=== PATIENT | male | born 1945 | race Caucasian/White ===

== ENCOUNTER 2017-03-07 10:51 | Inpatient (IN) ==
--- NOTE | 2017-03-07 11:04 | Emergency Department Note ---
Disposition Clinical Impression: Paroxysmal atrial fibrillation Disposition: Admitted As Inpatient Condition: Fair Referrals: Ab Royal, [employer] SUPERINTENDENT [Primary Care Provider] - Forms: ED Satisfaction Letter Time of Disposition: 12:39 Arrhythmia/Palpitations HPI - General Chief Complaint: ED Arrhythmia/Palpitations Stated Complaint: abnormal ekg Time Seen by Provider: 03/07/17 10:55 Source: patient, family Limitations: no limitations Nursing Notes Reviewed: Yes Vital Signs Reviewed: Yes - History of Present Illness HPI Narrative: 71-year-old who says she's had felt well in the last several days and comes in from the primary care provider's office apparently he is in A. fib. Patient had an episode of A. fib back in 2010 was electrically converted back to sinus is been in sinus since. She was on Coumadin at that time his no longer on Coumadin. Denies any chest pain. Pt Subjective Complaint: palpitations Onset (ago): day(s) Duration: constant (Several) Severity: moderate Arrhythmia History: atrial fibrillation (N past has not been in atrial fibrillation for several years.) - Related Data Home Medications Medication Instructions Recorded Confirmed Aspirin Enteric Coated [Aspirin EC] 81 mg PO DAILY 04/29/16 04/30/16 Atorvastatin Calcium [Lipitor] 10 mg PO SUWEFR 04/29/16 04/30/16 Hydrochlorothiazide 12.5 mg PO DAILY 04/29/16 04/30/16 Nicotine Polacrilex [Nicorette] 2 mg BC QID PRN 04/29/16 04/30/16 Ergocalciferol (VITAMIN D2) 400 unit PO DAILY 04/30/16 04/30/16 [Vitamin D] Multivitamin [Multivitamins] 1 tab PO DAILY 04/30/16 04/30/16 Alexander-3/Dha/Epa/Fish Oil [Fish Oil 500 mg PO DAILY 04/30/16 04/30/16 Dr 500 mg Softgel] Psyllium [Metamucil Fiber Singles 1 packet PO DAILY PRN 04/30/16 04/30/16 Packet] Previous Rx's Medication Instructions Recorded Lisinopril [Zestril] 5 mg PO DAILY #30 tablet 05/01/16 Allergies Allergy/AdvReac Type Severity Reaction Status Date / Time No Known Allergies Allergy Verified 03/07/17 11:00 All systems ED: reviewed and negative except as stated. Constitutional: Denies: fever, chills, weakness, weight change Eyes: Denies: eye pain, eye discharge, vision change ENT ED: Denies: ear pain, throat pain, dental pain, hearing loss, epistaxis, congestion, dysphagia Cardiovascular: Reports: palpitations. Denies: chest pain, dyspnea on exertion , edema, syncope Respiratory: Denies: cough, dyspnea, wheezes, hemoptysis, stridor Gastrointestinal: Denies: abdominal pain, nausea, vomiting, diarrhea, constipation, hematemesis, melena, hematochezia Genitourinary: Denies: urgency, dysuria, frequency, hematuria Musculoskeletal: Denies: back pain, neck pain, arthralgia, myalgia Integumentary: Denies: rash, abrasion, lesions Neurological: Denies: headache, weakness, numbness, paresthesias, confusion, abnormal gait, vertigo Psychiatric: Denies: anxiety, depression, suicidal thoughts, homicidal thoughts , auditory hallucinations, visual hallucinations Endocrine: Denies: fatigue Hematological/Lymphatic: Denies: easy bleeding, easy bruising Allergic/Immunologic: Denies: facial swelling, urticaria Past Medical History - Past Medical History Medical history: Reports: atrial fibrillation, CHF, coronary artery disease, hyperlipidemia, hypertension, myocardial infarction, other Surgical history: Reports: coronary bypass (CABG), other (tonsilletomy) Psychiatric history: Reports: no psych history - Social History Smoking Status: Former smoker Smokeless Tobacco Status: Yes Alcohol use: Reports: rarely Drug use: Reports: none Physical Exam - General Limitations: no limitations General appearance: alert, in no apparent distress - Head Head exam: atraumatic, normocephalic, normal inspection - Eye Eye exam: Present: normal appearance, PERRL, EOMI - ENT ENT exam: normal exam, normal oropharynx, mucous membranes moist - Neck Neck exam: Present: normal inspection, full ROM, trachea midline - Chest Chest inspection: Present: normal inspection, symmetric chest wall rise - Respiratory Respiratory exam: Present: normal lung sounds bilaterally - Cardiovascular Cardiovascular exam: Present: regular rate, irregular rhythm - Abdominal Exam Abdominal exam: Present: soft, Non-Tender. Absent: tenderness, distention, guarding, rebound, rigidity - Extremities Exam Extremities exam: Present: normal inspection, full ROM. Absent: tenderness, pedal edema - Expanded Lower Extremity Exam Neurovascular/Tendon exam: Absent: motor deficit, sensory deficit, tendon deficit Gait: observed and normal - Back Exam Back exam: Present: normal inspection, full ROM. Absent: tenderness - Neurological Exam Neurological exam: Present: alert, oriented X3 - Psychiatric Psychiatric exam: Present: normal affect, normal mood - Skin Skin exam: Present: warm, dry, intact, normal color Course - Reevaluation(s) Reevaluation #1: The [id number] who comes in stating he's felt bad for about a week when trying to quantify what he means by feeling that he has a lot of difficulty. He denies any chest pain he just says he feels weak and just doesn't feel well. He did have a history of atrial fib and he was cardioverted about 6 years ago. He saw his doctor today who noted that he was in atrial fibrillation which is new for him. We discussed it with cardiology in light of the fact that he doesn't feel well and were going to admit him to the hospitalist for consideration for cardioversion. Patient's does have a vital sign log which shows his heart rate jumping in the 120s and 130s over the last week. Time: 12:37 - Consultations Consultation #1: Stressed with Dr. Ye, admit to hospitalist. Time: 12:36 Consultation #2: Discussed with Dr. Layne, admit. Time: 12:41 Vital Signs Temperature 98.1 F 03/07/17 10:54 Pulse Rate 85 03/07/17 10:54 Respiratory Rate 18 03/07/17 10:54 Blood Pressure 138/87 03/07/17 10:54 O2 Sat by Pulse Oximetry 97 03/07/17 10:54 Temperature 98.1 F 03/07/17 10:54 Pulse Rate 76 03/07/17 12:32 Respiratory Rate 17 03/07/17 12:32 Blood Pressure 111/75 03/07/17 12:32 O2 Sat by Pulse Oximetry 97 03/07/17 12:32 Oxygen Delivery Oxygen Delivery Room Air Arrhythmia/Palpitations - Lab Data Result diagrams: 03/07/17 11:27 03/07/17 11:27 Lab Results 03/07/17 03/07/17 03/07/17 Range/Units 11:27 11:27 11:27 WBC 10.8 (4.3-11.1) K/mcL RBC 3.89 L (4.19-5.50) M/mcL Hgb 12.5 L (12.9-16.9) g/dL Hct 36.7 L (37.5-50.1) % MCV 94.3 (83.0-100.0) fL MCH 32.1 (28.0-33.3) pg MCHC 34.1 (31.6-35.5) g/dL RDW 12.0 (11.5-14.5) % Plt Count 180 (140-400) K/mcL MPV 11.1 (9.4-12.4) fL Immature Gran % 0.9 (0-4) % Seg Neutrophils % 65.9 % Lymphocytes % 22.3 % Monocytes % 8.6 % Eosinophils % 1.9 % Basophils % 0.4 % Neutrophils # 7.1 (1.6-8.9) K/mcL Lymphocytes # 2.4 (0.6-4.6) K/mcL Monocytes # 0.9 (0.0-1.3) K/mcL Eosinophils # 0.2 (0.0-0.6) K/mcL Basophils # 0.0 (0.0-0.2) K/mcL PT 11.7 (9.4-12.1) Seconds INR 1.1 APTT 31.6 (26.0-36.0) Seconds Sodium 138 (136-145) mEq/L Potassium 4.2 (3.5-4.5) mEq/L Chloride 103 (98-109) mEq/L Carbon Dioxide 26 (19-29) mEq/L BUN 24 (8-26) mg/dL Creatinine 1.00 (0.72-1.25) mg/dL Est GFR ( Amer) > 60 (> 60) Est GFR (Non-Af Amer) > 60 (> 60) BUN/Creatinine Ratio 24 (6-26) Glucose 93 (70-99) mg/dL Calculated Osmolality 290 (280-300) Calcium 9.2 (8.6-10.8) mg/dL Troponin I (0-0.03) ng/mL TSH 1.396 (0.350-4.840) mcIU/mL 03/07/17 Range/Units 11:27 WBC (4.3-11.1) K/mcL RBC (4.19-5.50) M/mcL Hgb (12.9-16.9) g/dL Hct (37.5-50.1) % MCV (83.0-100.0) fL MCH (28.0-33.3) pg MCHC (31.6-35.5) g/dL RDW (11.5-14.5) % Plt Count (140-400) K/mcL MPV (9.4-12.4) fL Immature Gran % (0-4) % Seg Neutrophils % % Lymphocytes % % Monocytes % % Eosinophils % % Basophils % % Neutrophils # (1.6-8.9) K/mcL Lymphocytes # (0.6-4.6) K/mcL Monocytes # (0.0-1.3) K/mcL Eosinophils # (0.0-0.6) K/mcL Basophils # (0.0-0.2) K/mcL PT (9.4-12.1) Seconds INR APTT (26.0-36.0) Seconds Sodium (136-145) mEq/L Potassium (3.5-4.5) mEq/L Chloride (98-109) mEq/L Carbon Dioxide (19-29) mEq/L BUN (8-26) mg/dL Creatinine (0.72-1.25) mg/dL Est GFR ( Amer) (> 60) Est GFR (Non-Af Amer) (> 60) BUN/Creatinine Ratio (6-26) Glucose (70-99) mg/dL Calculated Osmolality (280-300) Calcium (8.6-10.8) mg/dL Troponin I 0.00 (0-0.03) ng/mL TSH (0.350-4.840) mcIU/mL
[2017-03-07 11:36] LABS: Basophils % 0.4 %; Eosinophils # 0.2 K/mcL (0.0-0.6); Eosinophils % 1.9 %; Hematocrit 36.7 % (37.5-50.1); Hemoglobin 12.5 g/dL (12.9-16.9); Immature Granulocytes % 0.9 % (0-4); Lymphocytes # 2.4 K/mcL (0.6-4.6); Lymphocytes % 22.3 %; Mean Corpuscular HGB Conc 34.1 g/dL (31.6-35.5); Mean Corpuscular Hemoglobin 32.1 pg (28.0-33.3); Mean Corpuscular Volume 94.3 fL (83.0-100.0); Mean Platelet Volume 11.1 fL (9.4-12.4); Monocytes # 0.9 K/mcL (0.0-1.3); Monocytes % 8.6 %; Neutrophils # 7.1 K/mcL (1.6-8.9); Platelet Count 180 K/mcL (140-400); Red Blood Count 3.89 M/mcL (4.19-5.50); Segmented Neutrophils % 65.9 %
[2017-03-07 11:41] LABS: INR 1.1; Prothrombin Time 11.7 Seconds (9.4-12.1)
[2017-03-07 11:43] LABS: Activated Partial Thrombo Time 31.6 Seconds (26.0-36.0)
[2017-03-07 11:47] LABS: BUN/Creatinine Ratio 24 (6-26); Blood Urea Nitrogen 24 mg/dL (8-26); Calcium 9.2 mg/dL (8.6-10.8); Carbon Dioxide 26 mEq/L (19-29); Chloride 103 mEq/L (98-109); Glucose 93 mg/dL (70-99); Osmolality,Calculated 290 (280-300); Potassium 4.2 mEq/L (3.5-4.5); Sodium 138 mEq/L (136-145); eGFR For African Americans > 60 (> 60); eGFR For Non-African Americans > 60 (> 60)
[2017-03-07 12:10] LABS: Thyroid Stimulating Hormone 1.396 mcIU/mL (0.350-4.840)
--- NOTE | 2017-03-07 13:51 | Internal Med History&Physical ---
Date of Encounter: 03/07/17 Time of Encounter: 13:00 Assessment and Plan (1) Dyspnea on exertion Current visit: Yes Status: Acute Although patient has trace lower extremity swelling and CXR reveals pulmonary vascular congestion, BNP pending, patient does not have overt clinical CHF exacerbation. I suspect patient is having symptomatic atrial fibrillation/ aflutter. Will manage as outlined below (see diagnosis of PAF). Echocardiogram ordered. Supplemental oxygen ordered as needed. (2) Paroxysmal atrial fibrillation Current visit: Yes Status: Acute Patient's ECG reveals PACs, afib and aflutter. Patient appears to be symptomatic when HR is in low 100s-110s. At this time, will not order any rate control medications to be scheduled as he has had an issue with symptomatic bradycardia in the past and Metoprolol was previously discontinued. ED physician has contacted Dr. Ye with Cardiology for possible cardioversion. Has [id number] score of at least 3. At this time, will order a Heparin drip for AC. NPO after midnight. ECHO ordered for the a.m. (3) Fatigue Current visit: Yes Status: Acute Likely related to symptomatic atrial fibrillation and hypotension. Possibly, anemia may be playing a small role. Will hold antihypertensives at this time. Check B12, folate, iron panel for anemia workup. Atrial fibrillation management discussed elsewhere. Qualifiers: Encounter type: initial encounter Qualified Code(s): T73.2XXA - Exhaustion due to exposure, initial encounter (4) Hypertension Current visit: No Status: Chronic holding antihypertensives at this time as patient has been hypotensive. Qualifiers: Hypertension type: essential hypertension Qualified Code(s): I10 - Essential (primary) hypertension Internal Medicine - H&P: HPI Chief complaint: shortness of breath, fatigue Admitted From: Home Plans for Post Hospital Care: Home History of present illness: Mr. Hung is a 71 year old male with PMH atrial fibrillation s/p cardioversion in the past, CAD s/p 3-vessel CABG, CHF, HTN, HLP who presents to [facility] with complaints of shortness of breath and fatigue. Patient states that he was previously on Coumadin for 6 months in the past for Atrial Fibrillation (2010) and stopped anticoagulation after he was successfully cardioverted that year. He had symptomatic bradycardia approximately 1 year ago and was taken off of rate control medications. He stopped taking his vitals at home once he felt better until a couple of weeks ago when he became symptomatic. believes symptom onset was more like 2 months ago. He has become short of breath with minimal ADLs (dressings, bathing, walking several feet). Taking a shower wears him out and he falls asleep often. Has gained 12 lbs in the past several months due to decrease in physical activity. He has had some lower extremity edema. No mention of orthopnea. He denies any chest pain. He became nauseated when performing yard work two weeks ago and was concerned that it was related to his heart. They started to record his vitals; his systolic bp was running low (99-110s) and heart rate has been much higher than usual 90-110s (usually runs around 60 bpm). He denies any lightheadedness or syncope. convinced him to call his PCP who sent him to the urgent care; urgent care then sent him to the ED for changes on ECG. Past Med Surg Social Fam HX - Past Medical History Medical history: atrial fibrillation, CHF, coronary artery disease, hyperlipidemia, hypertension, myocardial infarction, other Psychiatric history: no psych history - Past Surgical History Surgical History: coronary bypass (CABG), other (tonsilletomy, cardioversion) - Social History Smoking Status: Former smoker Smokeless Tobacco Status: Yes Alcohol use: rarely Drug use: none - Family History Father Adopted: No Family Member Ethnicity: Unknown Living Status: Hx Family Cardiac Disorders: Yes Hx Family Respiratory Disorders: No Hx Family Cancer: No Hx Family GI Disorders: No Hx Family Endocrine Disorder: No Hx Family Neuromuscular Disorders: No Hx Family Neurologic Disorders: No Hx Family HEENT Disorders: No Hx Family Autoimmune Disorders: No Internal Medicine - H&P: Meds Aspirin Enteric Coated [Aspirin EC] 81 mg PO DAILY 04/29/16 [History] Atorvastatin Calcium [Lipitor] 10 mg PO SUWEFR 04/29/16 [History] Hydrochlorothiazide 12.5 mg PO DAILY 04/29/16 [History] Ergocalciferol (VITAMIN D2) [Vitamin D] 400 unit PO DAILY 04/30/16 [History] Multivitamin [Multivitamins] 1 tab PO DAILY 04/30/16 [History] Zamora-3/Dha/Epa/Fish Oil [Fish Oil Dr 500 mg Softgel] 500 mg PO DAILY 04/30/16 [ History] Psyllium [Metamucil Fiber Singles Packet] 1 packet PO DAILY PRN 04/30/16 [ History] Lisinopril [Zestril] 5 mg PO DAILY #30 tablet 05/01/16 [Rx] Allergies No Known Allergies Allergy (Verified 03/07/17 11:00) All Systems PM: A 10-system review of systems was performed and is negative for pertinent findings except as documented above in the HPI. - Constitutional Constitutional: fatigue, weight gain, no anorexia, no chills, no fever(s), no falls Additional comments: 12 lb - Cardiovascular Cardiovascular ROS IM: as per HPI, dyspnea on exertion, irregular heart rhythm, no chest pain, no diaphoresis, no lightheadedness, no syncope - Respiratory Respiratory: as per HPI, dyspnea, dyspnea on exertion, no cough - Gastrointestinal Gastrointestinal: as per HPI, no abdominal pain, no hematochezia, no melena - Musculoskeletal Musculoskeletal ROS IM: as per HPI - Constitutional Vitals: Temp Pulse Resp BP Pulse Ox 98.1 F 76 16 106/93 97 03/07/17 10:54 03/07/17 12:32 03/07/17 13:39 03/07/17 13:39 03/07/17 12:32 General appearance: Present: A&O X 3, pleasant, no acute distress, obese, answers questions appropriately. Absent: severe distress - Head Head exam: Present: atraumatic - Eye Eye exam: Present: EOMI, normal appearance - ENT ENT exam: Present: mucous membranes moist - Neck Neck exam general surgery: Absent: tenderness, thyromegaly - Respiratory Respiratory exam: Present: CTAB - Cardiovascular Cardiovascular exam: Present: distant heart sounds, irregular rhythm, +S1, +S2 - GI/Abdominal GI/Abdominal exam: Present: soft, no peritoneal signs. Absent: tenderness Additional comments: protuberant, but non-distended and nontender - Extremities Exam Extremities exam: Present: pedal edema (trace pretibial (pitting)) - Neurological Exam Neurological exam: Present: CN II-XII intact (grossly) - Psychiatric Psychiatric exam: Present: normal affect, normal mood Internal Med - H&P Results - Labs CBC & Chem 7: 03/07/17 11:27 03/07/17 11:27
[2017-03-07] MEDS ORDERED: *HR* Heparin 5,000 UNIT/ML VIAL IVP ONE (14:18)
[2017-03-07] MEDS ORDERED: *HR* Heparin 5,000 UNIT/ML VIAL IVP PRN ×2 (14:18)
[2017-03-07 15:16] LABS: Hemoglobin 12.3 g/dL (12.9-16.9); Mean Corpuscular HGB Conc 34.2 g/dL (31.6-35.5); Mean Corpuscular Hemoglobin 32.4 pg (28.0-33.3); Mean Corpuscular Volume 94.7 fL (83.0-100.0); Mean Platelet Volume 11.1 fL (9.4-12.4); Platelet Count 178 K/mcL (140-400); Red Cell Distribution Width 12.1 % (11.5-14.5)
[2017-03-07 15:19] LABS: INR 1.1; Prothrombin Time 11.9 Seconds (9.4-12.1)
[2017-03-07 15:22] LABS: Activated Partial Thrombo Time 31.3 Seconds (26.0-36.0)
[2017-03-07] MEDS: Heparin 25,000 UNIT/500 ML D5W 25,000 UNIT/500 ML MLS IVC SCH (16:36)
--- NOTE | 2017-03-07 18:33 | ECHO - Doppler Report ---
Echocardiogram Name: Andrew Hung Date of Study: 03/07/2017 Date: 1945 Ht: 67.0 in Medical Record#: [id number] Age: 71 Wt: 253.0 lb Gender: Male BSA: 2.23 Order #: [id number] Location: [facility] Room #: [id number] Reading Physician: Rina Manuel DO Director Music: Jennyfer Hall Ordering Physician: Briseyda Bustamante MD Primary Physician: Ab Royal CNP Indications: Shortness of breath, AFIB Impressions: LVEF 50-55%. Indeterminate diastolic function. Atypical septal motion consistent with post-operative status. RV is not well evaluated on this study. No significant valvular dysfunction. No pulmonary hypertension. Left Ventricular Wall Motion: Rest Echo Findings The mid anterior septal, mid inferior lateral, basal anterior septal and basal inferior lateral raymond were not visualized. All other wall segments showed normal motion. Findings: Study Quality * Technically sub-optimal due to body habitus. Suboptimal PLAX and PSAX views. ECG Findings * Atrial fib/flutter with BBB. Aorta * Not well evaluated. Aortic Valve * Aortic valve not well visualized. * No aortic stenosis. * No aortic regurgitation. Mitral Valve * Normal mitral valve structure. * No mitral stenosis. * Trace mitral regurgitation. Tricuspid Valve * Tricuspid valve not well visualized. * Trace tricuspid regurgitation. * Estimated RA pressure is 3 mmHg. * Estimated RVSP is 21 mmHg. * No pulmonary hypertension. Pulmonic Valve * Pulmonic valve is not well visualized. * No pulmonic stenosis. * No pulmonic regurgitation. Pulmonary Artery * Normal visualized portions of the main pulmonary artery. Left Ventricle * Suboptimal PLAX windows for LV measurements. Visually, LV size and wall thickness appear normal. * Indeterminate diastolic function. * Atypical septal motion consistent with post-operative status. * LVEF 50-55%. Left Atrium * Moderate to severely dilated left atrium. Right Ventricle * RV is not well evaluated. Right Atrium * Right atrium is not well visualized. Interatrial Septum * No evidence of PFO by color Doppler. Pericardium * There is no pericardial effusion present. IVC * Normal IVC dimensions and inspiratory collapse. History Hypertension Hypercholesteremia Family History of CAD History of CAD/PTCA Myocardial Infarction Coronary Artery Bypass Graft Congestive Heart Failure 04/30/2016 a Previous Echo was performed. Measurements: BP: 133/ 80 2D Normal Values RVIDd: 3.05 cm <2.7 cm IVSd: 1.20 cm 0.6 - 1.0 cm LVIDd: 5.45 cm 3.7 - 5.6 cm LVPWd: 1.05 cm 0.6 - 1.1 cm LVIDs: 3.50 cm 1.5 - 3.6 cm LA: 4.40 cm 2.0 - 4.0cm %FS: 36.40 cm >25 % LA volume: 120 Mitral Valve Peak E:1.15 m/sec Peak A:.62 m/sec E/A Ratio:1.8 Peak E' Lat Jean Marie:14.2 cm/s Peak E' Med Jean Marie:10.3 cm/s E/E' Lat Ratio:8.1 E/E' Med Ratio:11.2 Tricuspid Valve TV Regurg Peak Grad: 18.00mmHg TV Regurg Peak Jean Marie: 2.10m/sec Updated by Rina Manuel on 03/07/2017 6:25:47 PM electronically signed on 03/07/2017 6:26:46 PM with status of Final Wall Motion Richardson: 1=Normal, 2=Hypokinesis, 3=Akinesis, 4=Dyskinesis, 5=Aneurysmal, 6=Hyperkinetic, X=Not Visualized (Blank)=Missing
[2017-03-08 05:33] LABS: Hematocrit 38.9 % (37.5-50.1); Hemoglobin 13.4 g/dL (12.9-16.9); Mean Corpuscular HGB Conc 34.4 g/dL (31.6-35.5); Mean Corpuscular Hemoglobin 32.3 pg (28.0-33.3); Mean Corpuscular Volume 93.7 fL (83.0-100.0); Mean Platelet Volume 11.7 fL (9.4-12.4); Platelet Count 177 K/mcL (140-400); Red Blood Count 4.15 M/mcL (4.19-5.50); Red Cell Distribution Width 12.1 % (11.5-14.5)
[2017-03-08 05:36] LABS: INR 1.1; Prothrombin Time 11.9 Seconds (9.4-12.1)
[2017-03-08 05:41] LABS: Hemoglobin A1C 5.7 %
[2017-03-08 05:44] LABS: % Iron Saturation 26 % (20-55); Alanine Aminotransferase 20 Units/L (0-55); Albumin 3.9 g/dL (3.5-5.0); Albumin/Globulin Ratio 1.2 (1.1-2.2); Alkaline Phosphatase 64 Units/L (38-126); Aspartate Amino Transferase 14 Units/L (5-34); BUN/Creatinine Ratio 20 (6-26); Bilirubin,Total 0.4 mg/dL (0.2-1.2); Blood Urea Nitrogen 23 mg/dL (8-26); Calcium 9.5 mg/dL (8.6-10.8); Carbon Dioxide 28 mEq/L (19-29); Chloride 101 mEq/L (98-109); Chol/HDL Ratio 4.5 (0-4.9); Cholesterol 140 mg/dL (< 200); Globulin 3.2 g/dL (2.4-3.5); Glucose 113 mg/dL (70-99); HDL Cholesterol 31 mg/dL (40-59); Iron 74 mcg/dL (65-175); LDL Cholesterol,Calculated 81 mg/dL (0-99); Magnesium 2.3 mg/dL (1.6-2.6); Osmolality,Calculated 290 (280-300); Potassium 3.8 mEq/L (3.5-4.5); Sodium 138 mEq/L (136-145); Total Protein 7.1 g/dL (6.0-8.3); Transferrin 207 mg/dL (174-364); Triglycerides 140 mg/dL (< 150); eGFR For African Americans > 60 (> 60); eGFR For Non-African Americans > 60 (> 60)
[2017-03-08 05:55] LABS: Activated Partial Thrombo Time 128.9 Seconds (26.0-36.0)
[2017-03-08 06:00] LABS: Heparin anti-factor XA UFH 0.67 IU/mL (0.30-0.70)
[2017-03-08 06:31] LABS: Folate 15.6 ng/mL (7.0-31.4)
[2017-03-08 06:32] LABS: Vitamin B12 > 2000 pg/mL (213-816)
[2017-03-08] MEDS: Heparin 25,000 UNIT/500 ML D5W 25,000 UNIT/500 ML MLS IVC SCH (06:58)
[2017-03-08] MEDS ORDERED: DHA PO SCH (09:00)
[2017-03-08] MEDS ORDERED: FISH OIL PO SCH (09:00)
[2017-03-08] MEDS ORDERED: Pantoprazole 40 MG VIAL IVP SCH (09:00)
[2017-03-08] MEDS ORDERED: OMEGA PO SCH (09:00)
[2017-03-08] MEDS ORDERED: EPA PO SCH (09:00)
[2017-03-08] MEDS: Multivit/Ca/Min/Fe/FA 1 TAB TABLET PO SCH (09:25)
--- NOTE | 2017-03-08 09:28 | Cardiology Consult Note ---
Date of Encounter: 03/08/17 Time of Encounter: 09:28 Assessment and Plan (1) Paroxysmal atrial fibrillation Current Visit: Yes Status: Acute Patient is a 71 year old male with known history of previous afib s/p successful cardioversion in 2010 who presented to the ED with complaint of generalized feeling unwell and weakness. EKG in his PCP noted afib vs aflutter with rate of 84. EKG revealed afib with rate of 99, no acute changes. CXR revealed mild pulmonary vascular congestion Troponins negative, BNP 83, Cr 1.00, TSH 1.396 Echo revealed LVEF 50-55%, indeterminate diastolic function, atypical septal motion consistent with post op status, no valvular dysfunction, and no pulmonary hypertension. RODRICK-VASC score of 3 Telemetry overnight revealed average rate of 92, minimum 53bpm. Start cardizem 30 q6h, start 5mg eliquis bid. Continue Telemetry monitoring. Patient on lisinopril and hctz as outpatient for hypertension, will discontinue. Plan to watch heart rate overnight, if no problems while on cardizem, to discharge on cardizem and follow up with Cardio as outpatient within two weeks. If patient continues to have symptoms of weakness/fatigue associated with afib , then may consider outpatient cardioversion. (2) Dyspnea on exertion Current Visit: Yes Status: Acute Likely secondary to Afib. Echo revealed EF 50-55% Plan per assessments above. (3) Hypertension Current Visit: Yes Status: Chronic Discontinue lisinopril and hctz home medications for hypertension. Bp 96-111/61-72 overnight. Qualifiers: Hypertension type: essential hypertension Qualified Code(s): I10 - Essential (primary) hypertension (4) CAD (coronary artery disease) of artery bypass graft Current Visit: Yes Status: Chronic History of CAD s/p triple vessel CABG in 2003. Continue with home medications for chronic disease management. Qualifiers: [place] vs. transplanted heart: [place] heart Associated angina: without angina Qualified Code(s): I25.810 - Atherosclerosis of coronary artery bypass graft(s) without angina pectoris (5) Hyperlipidemia Current Visit: Yes Status: Chronic Continue home medications for chronic disease management. Qualifiers: Hyperlipidemia type: unspecified Qualified Code(s): E78.5 - Hyperlipidemia , unspecified Discussion w patient/family: The assessment and plan as outlined above was discussed with the patient and/or family members who expressed understanding and agreement. All questions were answered. Thank you for involving us in the care of your patient. Please call with any questions. History of Present Illness Consult date: 03/07/17 Requesting physician: Briseyda Bustamante Consult reason: Afib Chief complaint: Dyspnea, fatigue History of present illness: Mr. Hung is a 71 year old male with history of afib s/p successful cardioversion and previously on coumadin in 2010, CHF, CAD s/p triple vessel CABG in 2003, hypertension, hyperlipidemia, and > 40 year tobacco use who presented was sent from PCP to [facility] ED with complaint of feeling "not well" and weak for the past couple weeks. Patient saw his PCP who noted afib vs aflutter on ekg with rate of 48bpm and bp of 120/70. Patient also reports continued shortness of breath and fatigue that he reports he noticed after mowing his lawn on 02/21/17. At that time he took his blood pressure which was reportedly okay, but his heart rate was mildly elevated at 114, and had some associated nausea. Denied chest pain at that time, but also denied chest pain at the time of his CABG in 2003. He continued to keep a log of his bp and hr over the next couple weeks and noted hr up to 120-130s at times. Patient is not on current anticoagulation and has not been on rate controlling medication. He reports his beta chante was stopped twice due to low heart rates down to the 30-40s. Patient reports most recent hospital admission in April 2016 for concerns of bradycardia, though review of records indicate heart rates were within normal range and bp was within normal range throughout hospital stay. He was discharge with a 48 hr Holter monitor which revealed average hr of 73bpm, with frequent episodes of ventricular bigeminy. Patient denies fevers, chills, sweats, changes in vision or hearing, dizziness, lightheadedness, headaches, vomiting, chest pain, abdominal pain, changes in bowels or bladder, or loss of sensation. CXR revealed mild pulomnary vascular congestion. EKG revealed afib with rate of 99, no st elevations depressions or t wave inversions. Echo 03/07/17 revealed LVEF 50-55%, atypical septal motion consistent with post op status, no valvular dysfunction, no pulmonary hypertension, and indeterminate diastolic function. BNP 83, Cr 1.00, Troponin 0.00, 0.01 x3, TSH 1.396 Overnight patient reports continued weakness and fatigue, denies dyspnea with minimal exertion when going to the bathroom, denies chest pain or palpitations. Patient denies headaches, lightheadedness, dizziness, shortness of breath, abdominal pain, changes in bowels or bladder, or loss of sensation. Telemetry reviewed indiciate average hr of 92 bpm, minimum of 53bpm. Past Med Surg Social Fam HX - Past Medical History Medical history: atrial fibrillation, CHF, coronary artery disease, hyperlipidemia, hypertension, myocardial infarction, other Psychiatric history: no psych history - Past Surgical History Surgical History: coronary bypass (CABG), other (tonsilletomy, cardioversion) - Social History Smoking Status: Former smoker Smokeless Tobacco Status: Yes Alcohol use: rarely Drug use: none - Family History Father Adopted: No Family Member Ethnicity: Unknown Living Status: Hx Family Cardiac Disorders: Yes Hx Family Respiratory Disorders: No Hx Family Cancer: No Hx Family GI Disorders: No Hx Family Endocrine Disorder: No Hx Family Neuromuscular Disorders: No Hx Family Neurologic Disorders: No Hx Family HEENT Disorders: No Hx Family Autoimmune Disorders: No Medications and Allergies Aspirin Enteric Coated [Aspirin EC] 81 mg PO DAILY 04/29/16 [History] Atorvastatin Calcium [Lipitor] 10 mg PO SUWEFR 04/29/16 [History] Hydrochlorothiazide 12.5 mg PO DAILY 04/29/16 [History] Ergocalciferol (VITAMIN D2) [Vitamin D] 400 unit PO DAILY 04/30/16 [History] Multivitamin [Multivitamins] 1 tab PO DAILY 04/30/16 [History] [place]-3/Dha/Epa/Fish Oil [Fish Oil Dr 500 mg Softgel] 500 mg PO DAILY 04/30/16 [ History] Psyllium [Metamucil Fiber Singles Packet] 1 packet PO DAILY PRN 04/30/16 [ History] Lisinopril [Zestril] 5 mg PO DAILY #30 tablet 05/01/16 [Rx] Allergies No Known Allergies Allergy (Verified 03/07/17 11:00) All Systems Review: A 10-system review of systems was performed and is negative for pertinent findings except as documented above in the HPI. - Constitutional Constitutional: weakness, no chills, no fever(s), no headache(s), no night sweats - EENT Eyes: no blurred vision, no loss of vision Nose, mouth and throat: no dysphagia - Cardiovascular Cardiovascular: dyspnea on exertion, irregular heart rhythm, no as per HPI, no chest pain at rest, no chest pain with exertion, no dyspnea at rest, no radiating jaw, neck or arm pain, no leg edema, no palpitations - Respiratory Respiratory: dyspnea, no cough - Gastrointestinal Gastrointestinal: no abdominal pain, no diarrhea, no nausea - Musculoskeletal Musculoskeletal: no back pain - Neurological Neurological: no abnormal speech, no dizziness, no focal weakness, no loss of vision, no memory loss, no numbness, no syncope, no tingling Physical Examination Vital Signs, Last 4 Hours Temp Pulse Resp BP Pulse Ox 03/08/17 07:42 97.6 F 88 18 105/62 95 General: Conversant, No Apparent Distress HEENT: Atraumatic, Normocephaly, Mucus Membranes Moist Neck: No JVD, Normal carotid pulses Cardiac: Normal S1 and S2, No Murmur, Other (irregularly irregular) Lungs: Normal Breath Sounds, No Wheeze, Rales, Rhonchi Neuro: Alert and responsive, No focal deficits noted Abdomen: Soft, Non-Tender Skin: No rashes noted on visualized skin Musculoskeletal: No Chest Wall Tenderness Extremities: No Clubbing, No Cyanosis, No Edema, Normal Pulses Results 03/08/17 04:44 03/08/17 04:44 Lab Results 03/07/17 03/07/17 03/08/17 22:03 22:03 01:34 WBC Hgb Hct Plt Count INR APTT 79.2 H D Sodium Potassium Chloride Carbon Dioxide BUN Creatinine Glucose Calcium Magnesium Total Bilirubin AST ALT Alkaline Phosphatase Troponin I 0.01 0.01 03/08/17 03/08/17 03/08/17 04:44 04:44 04:44 WBC 10.9 Hgb 13.4 Hct 38.9 Plt Count 177 INR 1.1 APTT 128.9 H* D Sodium 138 Potassium 3.8 Chloride 101 Carbon Dioxide 28 BUN 23 Creatinine 1.14 Glucose 113 H Calcium 9.5 Magnesium 2.3 Total Bilirubin 0.4 AST 14 ALT 20 Alkaline Phosphatase 64 Troponin I Consult Discharge Plan - Plan Referrals: Ab Royal, PORTFOLIO ANALYST [Primary Care Provider] -
[2017-03-08] MEDS ORDERED: APIXABAN 5 MG TABLET PO SCH ×2 (10:00→21:00)
[2017-03-08] MEDS: APIXABAN 5 MG TABLET PO SCH ×2 (10:57→22:01)
--- NOTE | 2017-03-08 11:14 | Internal Med Progress Note ---
Date of Encounter: 03/08/17 Time of Encounter: 11:11 - Assessment and plan (1) Paroxysmal atrial fibrillation Current Visit: Yes Status: Acute Assessment and plan: Cardiology eval appreciated Currently rate controlled with PO cardizem will start eliquis for anticoagulation closely monitor, if remains stable overnight likely d/c in am (2) Hypertension Current Visit: Yes Status: Chronic Assessment and plan: BP within acceptable range off antihypertensive medications will continue to hold antihypertensive medications and restart as needed will closely monitor BP Qualifiers: Hypertension type: essential hypertension Qualified Code(s): I10 - Essential (primary) hypertension (3) CAD (coronary artery disease) of artery bypass graft Current Visit: Yes Status: Chronic Qualifiers: [place] vs. transplanted heart: [place] heart Associated angina: without angina Qualified Code(s): I25.810 - Atherosclerosis of coronary artery bypass graft(s) without angina pectoris (4) Dyspnea on exertion Current Visit: Yes Status: Acute Assessment and plan: Likely secondary to recurrent Afib plan as listed above for Afib currently denies any difficulty breathing or dyspnea on exertion. Ambulating well around the room (5) DVT prophylaxis Current Visit: Yes Status: Acute Assessment and plan: anticoagulated with Heparin gtt at this time and will be switched to Eliquis - Subjective Interval history: Patient seen and examined at bedside. Resting comfortably in bed and denies any discomfort at this time. Rate controlled and currently off cardizem gtt. - Constitutional Vitals: Temp Pulse Resp BP Pulse Ox 97.6 F 88 18 105/62 95 03/08/17 07:42 03/08/17 07:42 03/08/17 07:42 03/08/17 07:42 03/08/17 07:42 General appearance: Present: A&O X 3, pleasant, no acute distress, obese, answers questions appropriately. Absent: severe distress - Head Head exam: Present: atraumatic, normocephalic - Eye Eye exam: Present: normal appearance, PERRL, conjuntiva pink, sclera anicteric - Respiratory Respiratory exam: Present: CTAB. Absent: accessory muscle use, rales, rhonchi, wheezes - Cardiovascular Cardiovascular exam: Present: RRR, +S1, +S2. Absent: diastolic murmur, gallop, rubs, systolic murmur - GI/Abdominal GI/Abdominal exam: Present: normal bowel sounds, soft, no peritoneal signs. Absent: distended, tenderness - Extremities Exam Extremities exam: Present: warm, radial pulses palpable and symetrical. Absent : calf tenderness, cyanotic, pedal edema - Neurological Exam Neurological exam: Present: alert, oriented X3 - Psychiatric Psychiatric exam: Present: normal affect, normal mood Internal Medicine: Result - Labs CBC & Chem 7: 03/08/17 04:44 03/08/17 04:44 Labs: Short CBC 03/08/17 Range/Units 04:44 WBC 10.9 (4.3-11.1) K/mcL Hgb 13.4 (12.9-16.9) g/dL Hct 38.9 (37.5-50.1) % Plt Count 177 (140-400) K/mcL BMP 03/08/17 04:44 Sodium 138 Potassium 3.8 Chloride 101 Carbon Dioxide 28 BUN 23 Creatinine 1.14 Glucose 113 H Calcium 9.5 Cardiac Enzymes 03/07/17 03/08/17 Range/Units 22:03 01:34 Troponin I 0.01 0.01 (0-0.03) ng/mL Liver Function 03/08/17 Range/Units 04:44 Total Bilirubin 0.4 (0.2-1.2) mg/dL AST 14 (5-34) Units/L ALT 20 (0-55) Units/L Alkaline Phosphatase 64 (38-126) Units/L Albumin 3.9 (3.5-5.0) g/dL - ABG Interpretation ABG results: PT/INR, D-dimer PT 11.9 Seconds (9.4-12.1) 03/08/17 04:44 Consult Discharge Plan - Plan Referrals: Ab Royal CNP [Primary Care Provider] - 03/15/17 1:00 pm
--- NOTE | 2017-03-08 18:13 | Electrocardiograph Report ---
[address] [place] [address] Test Date: 2017-03-07 Pat Name: Andrew Hung Department: 102 Room: 2A23 Gender: M Car Record Clerk: : 1945 Requested By: eKn Hagen Order Number: [id number] Reading MD: Silvio Mosher MD Measurements Intervals [place] Rate: 99 P: IN: 0 QRS: 65 QRSD: 122 T: -25 QT: 348 QTc: 404 Interpretive Statements ATRIAL FIBRILLATION PROBABLE INFERIOR MYOCARDIAL INFARCTION, OF INDETERMINATE AGE Electronically Signed On 03-08-2017 18:11:42 EDT by Silvio Mosher MD
[2017-03-09 05:55] LABS: BUN/Creatinine Ratio 21 (6-26); Blood Urea Nitrogen 21 mg/dL (8-26); Calcium 9.1 mg/dL (8.6-10.8); Carbon Dioxide 30 mEq/L (19-29); Chloride 103 mEq/L (98-109); Glucose 118 mg/dL (70-99); Magnesium 2.1 mg/dL (1.6-2.6); Osmolality,Calculated 296 (280-300); Phosphorous 3.5 mg/dL (2.3-4.7); Potassium 3.8 mEq/L (3.5-4.5); Sodium 141 mEq/L (136-145); eGFR For African Americans > 60 (> 60); eGFR For Non-African Americans > 60 (> 60)
[2017-03-09 06:00] LABS: Basophils % 0.4 %; Eosinophils # 0.2 K/mcL (0.0-0.6); Eosinophils % 2.3 %; Hematocrit 36.1 % (37.5-50.1); Hemoglobin 11.9 g/dL (12.9-16.9); Immature Granulocytes % 0.9 % (0-4); Lymphocytes # 2.5 K/mcL (0.6-4.6); Lymphocytes % 24.7 %; Monocytes # 0.8 K/mcL (0.0-1.3); Monocytes % 8.4 %; Neutrophils # 6.3 K/mcL (1.6-8.9); Platelet Count 172 K/mcL (140-400); Red Blood Count 3.84 M/mcL (4.19-5.50); Red Cell Distribution Width 11.9 % (11.5-14.5); Segmented Neutrophils % 63.3 %
[2017-03-09 07:20] VITALS: BP 122/57
[2017-03-09] MEDS: Multivit/Ca/Min/Fe/FA 1 TAB TABLET PO SCH (07:36)
--- NOTE | 2017-03-09 07:51 | Cardiology Progress Note ---
Date of Encounter: 03/09/17 Time of Encounter: 07:49 Assessment and Plan (1) Paroxysmal atrial fibrillation Current Visit: Yes Status: Acute Patient is a 71 year old male with known history of previous afib s/p successful cardioversion in 2010 who presented to the ED with complaint of generalized feeling unwell and weakness. EKG in his PCP noted afib vs aflutter with rate of 84. EKG revealed afib with rate of 99, no acute changes. CXR revealed mild pulmonary vascular congestion Troponins negative, BNP 83, Cr 1.00, TSH 1.396 Echo revealed LVEF 50-55%, indeterminate diastolic function, atypical septal motion consistent with post op status, no valvular dysfunction, and no pulmonary hypertension. RODRICK-VASC score of 3 Telemetry overnight revealed average rate of 80, min 52 bpm. Continue Eliquis 5mg bid. Start Carizem CD 180mg. Continue Telemetry monitoring. Patient on lisinopril and hctz as outpatient for hypertension, discontinued this visit. Follow up with Cardiology as outpatient within two weeks. If patient continues to have symptoms of weakness/fatigue associated with afib, then may consider outpatient cardioversion. Cardiology will sign off at this time. Please contact us with any additional questions. (2) Dyspnea on exertion Current Visit: Yes Status: Acute Likely secondary to Afib. Echo revealed EF 50-55% Plan per assessments above. (3) Hypertension Current Visit: Yes Status: Chronic Discontinue lisinopril and hctz home medications for hypertension. Bp 101-124/61-85 overnight. Qualifiers: Hypertension type: essential hypertension Qualified Code(s): I10 - Essential (primary) hypertension (4) CAD (coronary artery disease) of artery bypass graft Current Visit: Yes Status: Chronic History of CAD s/p triple vessel CABG in 2003. Continue with home medications for chronic disease management. Qualifiers: [place] vs. transplanted heart: [place] heart Associated angina: without angina Qualified Code(s): I25.810 - Atherosclerosis of coronary artery bypass graft(s) without angina pectoris (5) Hyperlipidemia Current Visit: Yes Status: Chronic Continue home medications for chronic disease management. Qualifiers: Hyperlipidemia type: unspecified Qualified Code(s): E78.5 - Hyperlipidemia , unspecified Discussion w patient/family: The assessment and plan as outlined above was discussed with the patient and/or family members who expressed understanding and agreement. All questions were answered. Thank you for involving us in the care of your patient. Please call with any questions. Subjective Principal diagnosis: Afib Interval history: Patient reports doing ... Telemetry overnight revealed average heart rate 80, minimum 52 bpm. Bp stable and controlled. Objective Vital Signs, Last 4 Hours Temp Pulse Resp BP Pulse Ox 03/09/17 07:15 97.9 F 73 16 122/57 96 03/09/17 04:00 97.6 F 82 16 101/61 95 Results 03/09/17 05:07 03/09/17 05:07 Lab Results 03/09/17 03/09/17 05:07 05:07 WBC 10.0 Hgb 11.9 L D Hct 36.1 L Plt Count 172 Sodium 141 Potassium 3.8 Chloride 103 Carbon Dioxide 30 H BUN 21 Creatinine 1.01 Glucose 118 H Calcium 9.1 Magnesium 2.1 Consult Discharge Plan - Plan Referrals: Ab Royal, SURGICAL TECHNOLOGY INSTRUCTOR [Primary Care Provider] - 03/15/17 1:00 pm
[2017-03-09] MEDS ORDERED: Aspirin 81 MG TAB.CHEW PO SCH (09:00)
[2017-03-09] MEDS ORDERED: APIXABAN 5 MG TABLET PO SCH ×2 (09:00)
--- NOTE | 2017-03-09 10:48 | Discharge Summary ---
Date of Encounter: 03/09/17 Time of Encounter: 10:46 - Discharge Diagnosis (1) Paroxysmal atrial fibrillation Priority: Primary Status: Acute (2) Hypertension Priority: Secondary Status: Chronic Qualifiers: Hypertension type: essential hypertension Qualified Code(s): I10 - Essential (primary) hypertension (3) CAD (coronary artery disease) of artery bypass graft Priority: Secondary Status: Chronic Qualifiers: [place] vs. transplanted heart: [place] heart Associated angina: without angina Qualified Code(s): I25.810 - Atherosclerosis of coronary artery bypass graft(s) without angina pectoris (4) Dyspnea on exertion Priority: Secondary Status: Resolved (5) DVT prophylaxis Priority: Secondary Status: Acute - Discharge Medications Home Medications: Aspirin Enteric Coated [Aspirin EC] 81 mg PO DAILY 04/29/16 [History] Atorvastatin Calcium [Lipitor] 10 mg PO SUWEFR 04/29/16 [History] Ergocalciferol (VITAMIN D2) [Vitamin D] 400 unit PO DAILY 04/30/16 [History] Multivitamin [Multivitamins] 1 tab PO DAILY 04/30/16 [History] [place]-3/Dha/Epa/Fish Oil [Fish Oil Dr 500 mg Softgel] 500 mg PO DAILY 04/30/16 [ History] Psyllium [Metamucil Fiber Singles Packet] 1 packet PO DAILY PRN 04/30/16 [ History] Apixaban [Eliquis] 5 mg PO BID #60 tablet 03/09/17 [Rx] Diltiazem CD (24hr) [Cardizem CD] 180 mg PO DAILY #30 cap.er.24h 03/09/17 [Rx] Allergies/Adverse Reactions: Allergies No Known Allergies Allergy (Verified 03/07/17 11:00) Date of admission: 03/07/17 15:27 Primary care physician: Ab Royal CNP Consults: Cardiology: Dr. Ye Discharging clinician: Bety Blackmon Anticipated date of discharge: 03/09/17 - Patient Status Disposition: Home, Self-Care Condition: Good Functional capacity at discharge: independent ambulation Overall status at discharge: patient is back to baseline - Discharge Instructions Instructions: Diltiazem (By mouth), Atrial Fibrillation (DC) Follow Up With: Ab Royal CNP [Primary Care Provider] - 03/15/17 1:00 pm Additional Instructions: Please follow up with your primary care physician and automotive technician instructor within one week after your discharge from the hospital. Cardizem 180mg once a day and Eliquis 5mg twice a day has been added to your home medications. Please take these medications as prescribed. You were noted to have normal to low blood pressure during this hospitalization due to which your home medications of Lisinopril and Hydrochlorothiazide were discontinued. Continue to hold these medications at home and closely monitor your blood pressure. Restart these medications if you are noted to have blood pressure >140/90. Please inform your primary care physician about this change. Please resume all other home medications as prescribed by your primary care physician. - Diet and Activity Activity: resume usual activities as tolerated Diet: low salt diet Hospital course: Mr. Hung is a 71 year old male with PMH atrial fibrillation s/p cardioversion in the past, CAD s/p 3-vessel CABG, CHF, HTN, HLP who presents to [facility] with complaints of shortness of breath and fatigue. He was further admitted for management of paroxysmal atrial fibrillation. Cardiology was consulted and patient was started on heparin gtt for anticoagulation and rate was controlled with one time dose of Metoprolol. He was further started on cardizem PO with appropriate rate control. He was transitioned to Eliquis for anticoagulation and heparin gtt was discontinued. Patient's HR has remained within acceptable limits and his presenting symptoms have resolved. At this time he is hemodynamically stable and will be discharged to home with follow up with PCP and automotive technician instructor. Patient demonstrates understanding of his diagnosis and agrees with the discharge care plan. - Time Spent with Patient Total time spent providing and/or coordinating discharge services: Less than 30 minutes - Constitutional Vitals: Temp Pulse Resp BP Pulse Ox 97.9 F 73 16 122/57 96 03/09/17 07:15 03/09/17 07:15 03/09/17 07:15 03/09/17 07:15 03/09/17 07:15 General appearance: Present: A&O X 3, pleasant, no acute distress, obese, answers questions appropriately - Head Head exam: Present: atraumatic, normocephalic - Eye Eye exam: Present: conjuntiva pink, sclera anicteric - Respiratory Respiratory exam: Present: CTAB. Absent: accessory muscle use, rales, rhonchi, wheezes - Cardiovascular Cardiovascular exam: Present: RRR, +S1, +S2. Absent: diastolic murmur, gallop, rubs, systolic murmur - GI/Abdominal GI/Abdominal exam: Present: normal bowel sounds, soft, no peritoneal signs. Absent: distended, tenderness - Extremities Exam Extremities exam: Present: warm, radial pulses palpable and symetrical. Absent : calf tenderness, cyanotic, pedal edema - Neurological Exam Neurological exam: Present: alert, oriented X3 - Psychiatric Psychiatric exam: Present: normal affect, normal mood
[2017-03-09] MEDS ORDERED: Diltiazem CD (24hr) 180 MG CAPSULE PO SCH (12:00)
== END 2017-03-09 11:25 | disposition home or self-care (01) | DRG 309 ==
LOC: EMEROO 10:51 → 2ANU 10:51
PROVIDERS: ADMIT Internal Medicine; ATTEND Internal Medicine